=== PATIENT | male | born 1950 | race Caucasian/White ===

== ENCOUNTER → 2018-11-04 | Outpatient (CLI) | payer MEDICARE ==
--- NOTE | 2018-11-04 14:06 | CT ---
EXAMINATION TYPE: CT abdomen pelvis wo con DATE OF EXAM: 11/04/2018 COMPARISON: 05/11/2015 HISTORY: Chronic UTI, Kidney stones CT DLP: 487.30 mGycm Automated exposure control for dose reduction was used. TECHNIQUE: Helical acquisition of images was performed from the lung bases through the pelvis. FINDINGS: Lack of intravenous and oral contrast limit evaluation of the solid viscera and hollow visc era LUNG BASES: Pleural parenchymal scarring is seen at the lung bases LIVER/GB: There is a stable probable hepatic cyst in the left hepatic lobe in comparison to exam of 2 015 measuring 1.0 cm. Remainder of the unenhanced liver is unremarkable. Gallbladder demonstrates no evidence of cholelithiasis. PANCREAS: No significant abnormality is seen. SPLEEN: No splenomegaly. ADRENALS: No nodularity or thickening. KIDNEYS: Fluid attenuated right renal cyst is seen. There is resolution of the previously seen severe right hydroureteronephrosis and marked urinary bladder dilatation in comparison to exam of 2015. No nephrolithiasis is seen of either kidney nor hydronephrosis. No ureteral calculi. However within the urinary bladder there are multiple large (at least 6) urinary bladder calculi measuring up to 3.9 x 3 .8 cm. No urinary bladder wall thickening is seen. Patulous inguinal canals are noted bilaterally. FREE AIR: No free air is visualized ADENOPATHY: No greater than 1 cm short axis lymph node is noted within the abdomen or pelvis. Howeve r there is a slightly prominent 7 mm external iliac chain lymph node on image 92. REPRODUCTIVE ORGANS: Prostate gland is heterogenous and nodular although appears to impress upon the urinary bladder less than on the prior exam of 2015. OSSEOUS STRUCTURES: Moderate multilevel degenerative changes of the lumbosacral spine are seen. BOWEL: No dilated large or small bowel. IMPRESSION: 1. MULTIPLE LARGE URINARY BLADDER MEASURING UP TO 3.9 CM (APPROXIMATELY 6 IN NUMBER). 2. NO HYDRONEPHROSIS OR NEPHROLITHIASIS.
== END | disposition home or self-care (01) ==
LOC: RADCTMAIN 10:54
PROVIDERS: ATTEND Urology
DX: N32.89 Other specified disorders of bladder (principal); N30.20 Other chronic cystitis without hematuria
CPT/HCPCS: 74176